=== PATIENT | female | born 1975 | race Caucasian/White ===

== ENCOUNTER 2016-11-16 11:56 | Inpatient (IN) ==
[2016-11-15 13:22] LABS: Basophils # 0.1 10*3/uL (0.0-0.2); Basophils % 0.8 % (0.0-0.8); Eosinophils # 0.1 10*3/uL (0.0-0.87); Eosinophils % 0.9 % (0.00-10.9); Hematocrit 41.2 VOL% (35.7-47.0); Hemoglobin 13.6 GM/DL (12.0-16.0); Immature Granulocytes % 0.2 %; Immature Granulocytes Absolute 0.02 #; Lymphocytes # 2.1 10*3/uL (1.4-4.0); Lymphocytes % 23.4 % (21.3-54.2); Mean Corpuscular Hemoglobin 28 PG (27-34); Mean Corpuscular Volume 85.3 FL (87-102); Mean Platelet Volume 10.2 FL (9.6-12.0); Monocytes # 0.5 10*3/uL (0.11-0.8); Monocytes % 5.7 % (1.7-12.7); Neutrophils # 6.2 10*3/uL (1.4-7.4); Platelet Count 275 T/CUMM (130-400); Red Blood Count 4.83 MC/CUMM (3.8-5.5); Red Cell Distribution Width 13.4 % (9.3-17.3); White Blood Count 9.1 T/CUMM (4-12)
[2016-11-15 14:04] LABS: Albumin 3.9 G/DL (3.4-5.0); Bilirubin,Total 0.4 MG/DL (0.2-1.0); Calcium 9.1 MG/DL (8.5-10.1); Osmolality,Calculated 274.7 MOS/KG (273-304); Potassium 4.2 MMOL/L (3.5-5.1); Total Protein 7.3 G/DL (6.4-8.3)
[2016-11-16] MEDS ORDERED: FAMOTIDINE 20 MG TABLET PO ONE (12:41)
[2016-11-16] MEDS ORDERED: LORazepam 1 MG TABLET PO ONE (12:42)
[2016-11-16] MEDS ORDERED: HYOSCYAMINE 0.125 MG TABLET SL ONE (13:00)
[2016-11-16] MEDS ORDERED: PANTOPRAZOLE 40 MG VIAL IV ONE ×2 (13:00→13:02)
[2016-11-16] MEDS ORDERED: ACETAMINOPHEN INJ 1,000 MG in PREMIX 1 EACH IV ONE (13:00)
[2016-11-16] MEDS ORDERED: HEPARIN 5,000 UNIT/1 ML VIAL SUBCUT ONE (13:00)
[2016-11-16] MEDS ORDERED: SCOPOLAMINE 1.5 MG PATCH TRANSDERM ONE ×2 (13:00→13:02)
[2016-11-16] MEDS ORDERED: LORazepam 1 MG TABLET ONE (13:02)
[2016-11-16] MEDS ORDERED: HYOSCYAMINE 0.125 MG TABLET ONE (13:02)
[2016-11-16] MEDS ORDERED: HEPARIN 5,000 UNIT/1 ML VIAL ONE (13:02)
[2016-11-16] MEDS ORDERED: FAMOTIDINE 20 MG TABLET ONE (13:03)
[2016-11-16] MEDS ORDERED: SODIUM CHLORIDE 0.9% 100 ML IV ONE (13:03)
[2016-11-16] MEDS ORDERED: ACETAMINOPHEN 1,000 MG/100 ML VIAL IV ONE (13:03)
[2016-11-16] MEDS: LACTATED RINGERS 1,000 ML IV SCH ×3 (13:12→20:13)
[2016-11-16] MEDS ORDERED: DEXTROSE 5% NACL 0.9% 1,000 ML IV SCH (14:00)
--- NOTE | 2016-11-16 15:27 | History and Physical Update ---
History and Physical Update - History and Physical H&P was reviewed, the patient examined and there: are no changes in the patients condition since last H&P was completed.
[2016-11-16] MEDS ORDERED: BUPIVACAINE MPF 0.25% /EPI 30 ML VIAL ONE (15:31)
[2016-11-16] MEDS ORDERED: BUPIVACAINE LIPOSOMAL 20 ML/266 MG VIAL ONE (15:31)
--- NOTE | 2016-11-16 18:30 | Anesthesia Post-Op ---
Anesthesia Post OP - Post Ansesthetic Evaluation Patient seen in post op: Yes Resp: within normal limits CV: within normal limits Mental: within normal limits Temp: within normal limits [id number]: within normal limits Nausea and Vomiting: within normal limits Pain: within normal limits
[2016-11-16] MEDS ORDERED: ONDANSETRON 4 MG/2 ML VIAL ONE ×2 (18:34→18:43)
[2016-11-16] MEDS ORDERED: LABETALOL 20 MG/4 ML SYRINGE IV ONE (18:34)
[2016-11-16] MEDS ORDERED: GLYCOPYRROLATE 0.4 MG/2 ML VIAL ONE (18:34)
[2016-11-16] MEDS ORDERED: fentaNYL 100 MCG/2 ML VIAL ONE (18:34)
[2016-11-16] MEDS ORDERED: PROPOFOL 200 MG/20 ML VIAL IV ONE (18:34)
[2016-11-16] MEDS ORDERED: ROCURONIUM 100 MG/10 ML VIAL IV ONE (18:34)
[2016-11-16] MEDS ORDERED: LACTATED RINGERS 1,000 ML IV ONE (18:34)
[2016-11-16] MEDS ORDERED: DESFLURANE 1 UNIT/15 MINUTE INH ONE (18:34)
[2016-11-16] MEDS ORDERED: MIDAZOLAM 2 MG/2 ML VIAL ONE (18:34)
[2016-11-16] MEDS ORDERED: NEOSTIGMINE 10 MG/10 ML VIAL ONE (18:34)
--- NOTE | 2016-11-16 18:34 | Operative Note ---
Date of procedure: 11/16/16 Pre-op diagnosis: GERD with hiatal hernia, morbid obesity, hypertension, diabetes Post-op diagnosis: same Procedure: Procedure performed: #1 robotically assisted laparoscopic hiatal hernia repair # 2 robotically assisted laparoscopic vertical sleeve gastrectomy Procedure in detail: After informed consent was obtained, the patient was taken operating suite and laid supine on the operating table. After general anesthesia was induced the abdomen was prepped and draped in usual sterile fashion. After procedural pause local anesthetic infiltrated the skin and subcutaneous tissue just to the left of the umbilicus. Incision made and dissection carried down through the skin and soft tissue. Anterior fascia was opened and the rectus muscle retracted and the posterior fascia was opened. The abdominal cavity was entered bluntly. Finger sweep revealed a few adhesions just superior to the incision. There were no adhesions immediately adjacent to the entrance point. Pickett trocar was placed. Pneumoperitoneum achieved. Camera inserted bowel mesentery inspected and found to be free of any violation. There were a few adhesions just above the Pickett trocar site. A 12 mm and 8 mm robotic trocar were placed in the right upper quadrant under visualization. I then used these to take down the adhesions near the Pickett trocar site using sharp dissection and was able to free this area. Next an 8 mm left upper quadrant trocar and a 5 mm care management assistant trocar were placed under visualization. The patient was placed in reverse Trendelenburg position. The robotic arms were docked on to control to consult. The gastrohepatic ligament identified and the filmy tissue was opened exposing the right jose francisco. I dissected along the medial border of the right jose francisco posteriorly until the left jose francisco was identified. The vagus nerve running in this area was identified and Near the esophagus. There was a moderate hiatal hernia present of approximately 2 cm. The sac was dissected away from the crura. The hiatal hernia was repaired using 2-0 Ethibond [id number] sutures with a [address] There was no impingement or encroachment on the esophagus after the repair was performed. Next identified a 0.6 cm from the pylorus along the greater curve and began dividing the gastroepiploic vessels away from the gastric wall and continued taking down the short gastrics all the way to the cardia. The bougie was placed along the lesser curve and suction applied. Anterior and posterior wall of the stomach had good approximation. Vertical gastrectomy performed using the robotic staplers initially with a green load starting at 6 cm from the pylorus followed by blue loads all the way up to the cardia. Afterward the staple line was inspected and found to be intact and hemostatic. Staple line was inverted with 2-0 running Prolene suture beginning at the cardia. There was excellent hemostasis. The bougie was taken off suction and removed. The robotic arms were undocked and the abdomen was desufflated as the ports were removed and the excised stomach was removed through the Pickett trocar site. Posterior fascia closed with 0 Vicryl figure-of -eight suture. The anterior fascia closed with #1 Prolene [id number] sutures. The wounds were irrigated and suctioned. Deep dermal layer closed with 3-0 Vicryl. 4-0 Monocryl used to close skin. Sterile dressings applied. Patient was extubated and taken recovery room in stable condition. All lap and needle counts correct at the end of the case per Anesthesia: JULIETA Surgeon / Physician: Vipin Colindres Workers' Compensation Magistrate: Ivan Barr Estimated blood loss: other (Less than 10 cc) Specimens: other (Stomach) Condition: stable Disposition: PACU Results - Labs CBC & BMP: 11/15/16 13:17 11/15/16 13:17 Discharge Plan - Discharge Medications No Action hydroCHLOROthiazide [Hydrochlorothiazide] 12.5 mg PO DAILY Rosuvastatin [Crestor] 10 mg PO DAILY Pantoprazole Tab [Protonix Tab] 40 mg PO DAILY Eplerenone [Inspra] 50 mg PO DAILY Dextroamphetamine/Amphetamine [Adderall 20 mg Tablet] 20 mg PO DAILY Levothyroxine Tab [Synthroid Tab] 88 mcg PO DAILY@0700 Cetirizine Tab [ZyrTEC Tab] 10 mg PO DAILY cycloSPORINE OPH EMUL [Restasis] 1 drop BOTH EYES Q12HR Albuterol Sulfate [Proair HFA] 2 puff INH Q6H PRN PRN Reason: Shortness Of Breath/Wheezing Meloxicam [Mobic] 15 mg PO DAILY buPROPion [Wellbutrin] 75 mg PO DAILY Mometasone 50 Mcg Nasal [place] [Nasonex Nasal [place]] 2 spray BOTH NARES DAILY - Follow Up or Referral - Forms/Instructions
[2016-11-16] MEDS: HYDROmorphone 2 MG/1 ML VIAL IV PRN ×2 (18:35→18:55)
[2016-11-16] MEDS ORDERED: HYDROcod/ACETAMIN 7.5-325 MG/15 ML UDCUP PO PRN (18:43)
[2016-11-16] MEDS ORDERED: hydrALAZINE 20 MG/1 ML VIAL IV PRN (18:43)
[2016-11-16] MEDS ORDERED: HYDROmorphone 2 MG/1 ML VIAL ONE (18:43)
[2016-11-16] MEDS ORDERED: ONDANSETRON 4 MG/2 ML VIAL IV PRN (18:47)
--- NOTE | 2016-11-16 19:16 | Operative Note ---
Date of procedure: 11/16/16 Pre-op diagnosis: Morbid obesity with hiatal hernia Post-op diagnosis: same Procedure: This is a therapist's assistant note for robotic assisted laparoscopic hiatal hernia repair with sleeve gastrectomy performed by Dr. Colindres. I was present and assisted with the hiatal hernia repair and sleeve gastrectomy. The posterior jose francisco of the diaphragm was reapproximated to close the hiatal hernia and the sleeve gastrectomy was performed by being calibrated over a bougie. Staple line was straight with no twisting and appeared healthy and viable and was oversewn. Anesthesia: GETA Surgeon / Physician: Vipin Colindres Wool Handler: Ivan Barr Estimated blood loss: minimal Results - Labs CBC & BMP: 11/15/16 13:17 11/15/16 13:17 Discharge Plan - Discharge Medications No Action hydroCHLOROthiazide [Hydrochlorothiazide] 12.5 mg PO DAILY Rosuvastatin [Crestor] 10 mg PO DAILY Pantoprazole Tab [Protonix Tab] 40 mg PO DAILY Eplerenone [Inspra] 50 mg PO DAILY Dextroamphetamine/Amphetamine [Adderall 20 mg Tablet] 20 mg PO DAILY Levothyroxine Tab [Synthroid Tab] 88 mcg PO DAILY@0700 Cetirizine Tab [ZyrTEC Tab] 10 mg PO DAILY cycloSPORINE OPH EMUL [Restasis] 1 drop BOTH EYES Q12HR Albuterol Sulfate [Proair HFA] 2 puff INH Q6H PRN PRN Reason: Shortness Of Breath/Wheezing Meloxicam [Mobic] 15 mg PO DAILY buPROPion [Wellbutrin] 75 mg PO DAILY Mometasone 50 Mcg Nasal [place] [Nasonex Nasal [place]] 2 spray BOTH NARES DAILY - Follow Up or Referral - Forms/Instructions
[2016-11-16] MEDS: ONDANSETRON 4 MG/2 ML VIAL IV PRN (20:12)
[2016-11-16] MEDS: MORPHINE 2 MG/1 ML SYRINGE IV PRN ×2 (20:12→23:03)
[2016-11-17] MEDS: ceFAZolin 2,000 MG in PREMIX 1 EACH IV SCH ×2 (00:31→10:10)
[2016-11-17] MEDS: LACTATED RINGERS 1,000 ML IV SCH ×2 (00:32→04:27)
[2016-11-17] MEDS: MORPHINE 2 MG/1 ML SYRINGE IV PRN ×3 (03:43→10:49)
[2016-11-17] MEDS: ONDANSETRON 4 MG/2 ML VIAL IV PRN ×2 (03:43→10:54)
[2016-11-17 06:24] LABS: Basophils % 0.5 % (0.0-0.8); Eosinophils % 0.1 % (0.00-10.9); Hematocrit 36.4 VOL% (35.7-47.0); Hemoglobin 11.8 GM/DL (12.0-16.0); Immature Granulocytes % 0.3 %; Immature Granulocytes Absolute 0.03 #; Lymphocytes # 1.5 10*3/uL (1.4-4.0); Lymphocytes % 16.9 % (21.3-54.2); Mean Corpuscular HGB Conc 32.4 GM/DL (32-36); Mean Corpuscular Hemoglobin 28 PG (27-34); Mean Corpuscular Volume 86.5 FL (87-102); Mean Platelet Volume 10.3 FL (9.6-12.0); Monocytes # 0.5 10*3/uL (0.11-0.8); Monocytes % 6.3 % (1.7-12.7); Neutrophils # 6.5 10*3/uL (1.4-7.4); Neutrophils % 75.9 % (38.7-73.9); Platelet Count 210 T/CUMM (130-400); Red Blood Count 4.21 MC/CUMM (3.8-5.5); Red Cell Distribution Width 13.7 % (9.3-17.3); White Blood Count 8.6 T/CUMM (4-12)
[2016-11-17 06:50] LABS: Calcium 8.1 MG/DL (8.5-10.1); Osmolality,Calculated 280.1 MOS/KG (273-304); Potassium 4.5 MMOL/L (3.5-5.1)
[2016-11-17] MEDS ORDERED: ALBUTEROL 0.63 MG/3 ML NEB RESP TX PRN (08:59)
[2016-11-17] MEDS ORDERED: hydroCHLOROthiazide 12.5 MG CAPSULE PO SCH (09:00)
[2016-11-17] MEDS ORDERED: MOMETASONE 50 MCG NASAL SPRAY 17 GM BOTTLE BOTH NARES SCH (09:00)
[2016-11-17] MEDS ORDERED: buPROPion 75 MG TABLET PO SCH (09:00)
[2016-11-17] MEDS ORDERED: EPLERENONE 50 MG TABLET PO SCH (09:00)
[2016-11-17] MEDS ORDERED: cycloSPORINE OPH EMUL 1 VIAL BOTH EYES SCH (09:00)
[2016-11-17] MEDS ORDERED: CETIRIZINE 10 MG TABLET PO SCH (09:00)
[2016-11-17] MEDS ORDERED: PANTOPRAZOLE 40 MG VIAL IV SCH (09:00)
[2016-11-17 11:34] VITALS: BP 120/65
[2016-11-17 12:01] LABS: Hematocrit 38.4 VOL% (35.7-47.0); Hemoglobin 12.7 GM/DL (12.0-16.0)
--- NOTE | 2016-11-17 12:38 | Discharge Summary ---
Hospital Course - Hospital Course Hospital Course: Patient is a 41-year-old female who underwent robotically assisted labs Hiatal hernia repair and vertical sleeve gastrectomy for GERD with hiatal hernia, morbid obesity, hypertension and diabetes mellitus. She required overnight monitoring to ensure she was tolerating oral intake. She tolerated her clear liquid diet without difficulty. Labs were stable and the patient was ultimately discharged home in good condition. Patient received education on appropriate advancement of her diet, the need for hydration to avoid the dehydration was reinforced. She is to follow with Dr. Colindres in 2 weeks. Consultation appreciated from Dr. Horn with him she will also follow-up on outpatient basis. Diagnosis - Discharge Diagnosis (1) Morbid obesity Status: Acute (2) Hiatal hernia Status: Acute (3) Hypertension Status: Acute (4) Diabetes mellitus Status: Acute Specialty Discharge - Follow Up or Referrals Follow up with: Alpesh Horn M.D. [Physician] - 11/24/16 12:40 pm Vipin Colindres MD [Physician] - 11/29/16 9:45 am Discharge Plan - Discharge Data Disposition: Disch To Home/Self Care Condition at Discharge: Stable Discharge Diet: other (Diet per pre-op education. Continue clear liquids in hospital.) Activity: no lifting (> 10lb) Hygiene: may shower (Starting Post-operative day #2. Do not soak or submerge wounds. ) Driving: other (No driving while taking narcotics) Contact your physician if you experience:: fever over 101, Difficulty voiding, Redness or swelling, Nausea/Vomiting, Shortness of breath, Bleeding, pain uncontrolled by pain medications Wound / Dressing Care Instructions: Keep surgical incisions clean and dry. - Discharge Medications New HYDROcod/ACETAM 7.5-325MG/15ML 15 ml PO Q4H PRN PRN Reason: Pain Moderate (4-7) Continue hydroCHLOROthiazide [Hydrochlorothiazide] 12.5 mg PO DAILY Pantoprazole Tab [Protonix Tab] 40 mg PO DAILY Levothyroxine Tab [Synthroid Tab] 88 mcg PO DAILY@0700 Cetirizine Tab [ZyrTEC Tab] 10 mg PO DAILY cycloSPORINE OPH EMUL [Restasis] 1 drop BOTH EYES Q12HR Albuterol Sulfate [Proair HFA] 2 puff INH Q6H PRN PRN Reason: Shortness Of Breath/Wheezing buPROPion [Wellbutrin] 75 mg PO DAILY Mometasone 50 Mcg Nasal [place] [Nasonex Nasal [place]] 2 spray BOTH NARES DAILY Discontinued Rosuvastatin [Crestor] 10 mg PO DAILY Eplerenone [Inspra] 50 mg PO DAILY Dextroamphetamine/Amphetamine [Adderall 20 mg Tablet] 20 mg PO DAILY Meloxicam [Mobic] 15 mg PO DAILY - Follow Up or Referral Follow Up: Alpesh Horn M.D. [Physician] - 11/24/16 12:40 pm Vipin Colindres MD [Physician] - 11/29/16 9:45 am - Forms/Instructions Instructions: Laparoscopic Sleeve Gastrectomy (DC) Exam - Constitutional Vitals: Period Temp Pulse Resp BP Sys/Garcia Pulse Ox Last 24 Hr 97.8 F-99.1 F 63-96 16-18 115-163/65-101 96-100 General appearance: no acute distress, morbidly obese - Head Head exam: Present: normal inspection, normocephalic - Eye Eye exam: Absent: conjunctival injection, scleral icterus - Respiratory Respiratory exam: Present: clear to auscultation bilaterally - Cardiovascular Cardiovascular exam: Present: regular rate and rhythm - GI/Abdominal GI/Abdominal exam: Present: tenderness (Appropriate p/o tenderness. ), soft, other (obese. surgical incisions c/d/i). Absent: distended, firm, guarding - Extremities Exam Extremities exam: Absent: calf tenderness, edema - Neurological Exam Neurological exam: Present: alert, oriented X3 - Psychiatric Psychiatric exam: Present: normal affect, normal mood - Skin Skin exam: Present: normal color, warm Discharge Results Procedures and tests throughout hospitalization: #1 robotically-assisted labs, hiatal hernia repair 2. Robotically-assisted laparoscopic vertical sleeve gastrectomy Labs on day of discharge: Labs from last 24 hours 11/17/16 11/17/16 11/17/16 11:35 06:06 06:06 WBC 8.6 RBC 4.21 Hgb 12.7 11.8 L Hct 38.4 36.4 MCV 86.5 L MCH 28 MCHC 32.4 RDW 13.7 Plt Count 210 D MPV 10.3 Neut % (Auto) 75.9 H Lymph % (Auto) 16.9 L Bledsoe % (Auto) 6.3 Eos % (Auto) 0.1 Baso % (Auto) 0.5 Neut # (Auto) 6.5 Lymph # (Auto) 1.5 Bledsoe # (Auto) 0.5 Eos # (Auto) 0.0 Baso # (Auto) 0.0 Immature Gran % 0.3 Nucleated RBC % 0.0 Immature Gran # 0.03 Nucleated RBCs # 0.00 Sodium 142 Potassium 4.5 Chloride 109 H Carbon Dioxide 24 Anion Gap 13.5 BUN 10 Creatinine 0.60 GFR Calculation 148 BUN/Creatinine Ratio 16.00 Glucose 89 POC Glucose Calculated Osmolality 280.1 Calcium 8.1 L 11/16/16 11/16/16 11/16/16 18:35 17:06 14:33 WBC RBC Hgb Hct MCV MCH MCHC RDW Plt Count MPV Neut % (Auto) Lymph % (Auto) Bledsoe % (Auto) Eos % (Auto) Baso % (Auto) Neut # (Auto) Lymph # (Auto) Bledsoe # (Auto) Eos # (Auto) Baso # (Auto) Immature Gran % Nucleated RBC % Immature Gran # Nucleated RBCs # Sodium Potassium Chloride Carbon Dioxide Anion Gap BUN Creatinine GFR Calculation BUN/Creatinine Ratio Glucose POC Glucose 107 H 85 174 H Calculated Osmolality Calcium DS: Provider Date of admission: 11/16/2016 Primary care physician: . No PCP Attending physician on admission: Dr. Colindres Consults: 11/16/16 18:43 Consult to Physician [CONS] Routine Comment: Dr. Alpesh Horn Consulting Provider: Alpesh Horn Consulting Provider Notified: Yes When should Consulting Provider be notified: Now Person Notified: dr. alpesh horn Date Notified: 11/17/16 Time Notified: 07:11 Discharging clinician: Debi Jarrett PA-C
[2016-11-17] MEDS ORDERED: SIMETHICONE CHEW 80 MG TABLET PO SCH (21:00)
[2016-11-18] MEDS ORDERED: LEVOTHYROXINE 88 MCG TABLET PO SCH (07:00)
[2016-11-18] MEDS ORDERED: ENOXAPARIN 40 MG/0.4 ML SYRINGE SUBCUT SCH (09:00)
--- NOTE | 2016-11-20 12:19 | Pathology Report from [facility] ---
[facility] [place] ACCESSION # : [id number] PATIENT NAME : Stan Silverio ORDERING DR : Vipin Colindres MD CLINICAL HX: Unable to lose weight - Hiatal hernia POST-OP DX: Same SPECIMEN INFO: Portion of stomach GROSS DESCRIPTION: The specimen is received in formalin labeled with the patients name STAN SILVERIO and consists of a cylindrical-shaped portion of stomach measuring approximately 15.0 cm x up to 3.0 cm. The serosa is smooth and aiken. Opening the stomach reveals normal mucosal folds with a slight diffuse granularity with two possible polyps present measuring 0.3 cm respectively. [employer] Repaire[employer] sections submitted in cassettes A and B. DIAGNOSIS FOR STAN SILVERIO: PORTION OF STOMACH: Chronic gastritis, congestion. COLLECTED DATE: 11/17/2016 [facility] REPORT DATE: 11/20/2016 ELECTRONICALLY SIGNED BY: Denton Taylor M.D. 11/20/2016 - 10:25:34 [email or web address]
== END 2016-11-17 15:31 | disposition home or self-care (01) | DRG 327 ==
LOC: N.OR 11:56 → N.SDSINP 11:57 → N.3E 19:36 → EDSDCBED 19:36 → N.SDSINP 19:36 → N.OR 11-17 15:31 → UNDODEPSDC 11-20 09:06
PROVIDERS: ADMIT Surgery; ATTEND Surgery